=== PATIENT | male | born 1985 | race Caucasian/White ===

== ENCOUNTER 2016-10-18 01:06 | Emergency (ER) | payer OTHER ==
[~2016-10-18] VITALS: Ht 167.6 cm; Wt 113.6 kg
[~2016-10-18 01:06] MED LIST: BP MED; COGENTIN; LITH300C3 PO; VISTARIL; ZYPREXA PO
[2016-10-18] MEDS ORDERED: LURA80 PO (01:15)
[2016-10-18] MEDS ORDERED: VIST50 PO (01:15)
[2016-10-18] MEDS ORDERED: AMLO-511 PO (01:15)
[2016-10-18 01:57] LABS: BASOPHILS % (AUTO) 0.6 % (0.0-2.0); HEMATOCRIT 47.9 % (41-53); HEMOGLOBIN 15.9 g/dL (13.5-17.5); LYMPHOCYTES # (AUTO) 4.6 K/uL (1.0-4.8); LYMPHOCYTES % (AUTO) 42.3 % (22.0-44.0); MEAN CORPUSCULAR HEMOGLOBIN 28.7 pg (26.0-34.0); MEAN CORPUSCULAR HGB CONC 33.1 G/dL (31.0-37.0); MEAN CORPUSCULAR VOLUME 87 fL (80-100); MONOCYTES # (AUTO) 0.5 K/uL (0.1-1.0); MONOCYTES % (AUTO) 4.9 % (2.0-9.0); NEUTROPHILS # (AUTO) 5.5 K/uL (1.8-7.7); NEUTROPHILS % (AUTO) 50.2 % (40.0-70.0); PLATELET COUNT (AUTO) 271 K/uL (150-450); RED BLOOD CELL COUNT(AUTO) 5.53 MIL/uL (4.50-5.90); RED CELL DISTRIBUTION WIDTH 13.1 % (11.5-14.5); WHITE BLOOD COUNT (AUTO) 10.9 K/uL (4.5-11.0)
[2016-10-18 02:02] LABS: ANION GAP 9 mmol/L (8-16); CALCIUM, TOTAL 9.5 mg/dL (8.8-10.5); CARBON DIOXIDE 29 mmol/L (22-29); CHLORIDE 104 mmol/L (98-107); CREATININE 1.11 mg/dL (0.60-1.30); GLOMERULAR FILTR. RATE CALC > 60 mL/min (>60); POTASSIUM 3.7 mmol/L (3.5-5.1); SODIUM SERUM 142 mmol/L (136-145); UREA NITROGEN, BLOOD 12 mg/dL (7-18)
[2016-10-18 02:08] LABS: ALANINE AMINOTRANSFERASE 62 U/L (12-78); ASPARTATE AMINOTRANSFERASE 31 U/L (15-37); BILIRUBIN,TOTAL 0.2 mg/dL (0.1-1.0); TOTAL PROTEIN, SERUM 7.7 g/dL (6.4-8.2)
[2016-10-18 02:20] LABS: LITHIUM < 0.20 mmol/L (0.60-1.20)
[2016-10-18] MEDS ORDERED: HydrOXYzine PAMOATE 50 MG CAPSULE PO ONE (05:30)
[2016-10-18 10:52] VITALS: BP 102/59
== END 2016-10-18 11:30 | disposition short-term general hospital (02) ==
LOC: EMS 01:08
DX: F31.9 Bipolar disorder, unspecified (principal); F41.9 Anxiety disorder, unspecified; I10 Essential (primary) hypertension; F17.210 Nicotine dependence, cigarettes, uncomplicated; Z88.0 Allergy status to penicillin
CPT/HCPCS: 36415; 80053; 80178; 80307; 85025; 99285; G0480

== ENCOUNTER 2017-01-14 03:26 | Emergency (ER) | payer OTHER ==
[~2017-01-14] VITALS: Ht 172.7 cm; Wt 107.0 kg
[~2017-01-14 03:26] MED LIST changes: +AMLO-511 PO; -BP MED; -COGENTIN; -LITH300C3 PO; +LURA80 PO; +VIST50 PO; -VISTARIL; -ZYPREXA PO
[2017-01-14 04:20] LABS: BASOPHILS % (AUTO) 1.2 % (0.0-2.0); EOSINOPHILS % (AUTO) 2.4 % (1.0-6.0); HEMATOCRIT 45.7 % (41-53); HEMOGLOBIN 14.7 g/dL (13.5-17.5); LYMPHOCYTES % (AUTO) 37.2 % (22.0-44.0); MEAN CORPUSCULAR HEMOGLOBIN 28.3 pg (26.0-34.0); MEAN CORPUSCULAR HGB CONC 32.2 G/dL (31.0-37.0); MEAN CORPUSCULAR VOLUME 88 fL (80-100); MONOCYTES # (AUTO) 0.5 K/uL (0.1-1.0); MONOCYTES % (AUTO) 4.2 % (2.0-9.0); PLATELET COUNT (AUTO) 260 K/uL (150-450); RED BLOOD CELL COUNT(AUTO) 5.21 MIL/uL (4.50-5.90); RED CELL DISTRIBUTION WIDTH 13.1 % (11.5-14.5); WHITE BLOOD COUNT (AUTO) 10.9 K/uL (4.5-11.0)
[2017-01-14 04:28] LABS: ANION GAP 8 mmol/L (8-16); CALCIUM, TOTAL 8.8 mg/dL (8.8-10.5); CARBON DIOXIDE 28 mmol/L (22-29); CHLORIDE 105 mmol/L (98-107); CREATININE 1.05 mg/dL (0.60-1.30); GLOMERULAR FILTR. RATE CALC > 60 mL/min (>60); POTASSIUM 3.6 mmol/L (3.5-5.1); SODIUM SERUM 141 mmol/L (136-145); UREA NITROGEN, BLOOD 13 mg/dL (7-18)
[2017-01-14 04:34] LABS: ALANINE AMINOTRANSFERASE 46 U/L (12-78); ALBUMIN 3.7 g/dL (3.4-5.0); ASPARTATE AMINOTRANSFERASE 23 U/L (15-37); BILIRUBIN,TOTAL 0.2 mg/dL (0.1-1.0); TOTAL PROTEIN, SERUM 6.9 g/dL (6.4-8.2)
[2017-01-14 04:54] VITALS: BP 137/88
== END 2017-01-14 05:01 | disposition home or self-care (01) ==
LOC: EMS 03:27
DX: F41.9 Anxiety disorder, unspecified (principal); F43.10 Post-traumatic stress disorder, unspecified; R45.851 Suicidal ideations; F31.9 Bipolar disorder, unspecified; I10 Essential (primary) hypertension; F17.210 Nicotine dependence, cigarettes, uncomplicated; Z88.0 Allergy status to penicillin; X58.XXXA Exposure to other specified factors, initial encounter; Y93.89 Activity, other specified; Y92.89 Other specified places as the place of occurrence of the external cause; Y99.8 Other external cause status
CPT/HCPCS: 36415; 80053; 80307; 85025; 99285; 99406; G0480

== ENCOUNTER 2017-10-18 04:22 | Emergency (ER) | payer OTHER ==
[~2017-10-18] VITALS: Ht 167.6 cm; Wt 100.0 kg
[~2017-10-18 04:22] MED LIST changes: -AMLO-511 PO
[2017-10-18] MEDS ORDERED: LITHIUM PO (04:45)
[2017-10-18 05:56] LABS: BASOPHILS % (AUTO) 0.9 % (0.0-2.0); EOSINOPHILS % (AUTO) 1.7 % (1.0-6.0); HEMATOCRIT 45.5 % (41-53); HEMOGLOBIN 15.8 g/dL (13.5-17.5); LYMPHOCYTES # (AUTO) 4.1 K/uL (1.0-4.8); LYMPHOCYTES % (AUTO) 40.5 % (22.0-44.0); MEAN CORPUSCULAR HEMOGLOBIN 29.5 pg (26.0-34.0); MEAN CORPUSCULAR HGB CONC 34.8 G/dL (31.0-37.0); MEAN CORPUSCULAR VOLUME 85 fL (80-100); MONOCYTES # (AUTO) 0.5 K/uL (0.1-1.0); MONOCYTES % (AUTO) 4.9 % (2.0-9.0); NEUTROPHILS # (AUTO) 5.3 K/uL (1.8-7.7); PLATELET COUNT (AUTO) 251 K/uL (150-450); RED BLOOD CELL COUNT(AUTO) 5.35 MIL/uL (4.50-5.90); RED CELL DISTRIBUTION WIDTH 13.2 % (11.5-14.5)
[2017-10-18 06:03] LABS: ANION GAP 8 mmol/L (8-16); CALCIUM, TOTAL 9.3 mg/dL (8.8-10.5); CARBON DIOXIDE 30 mmol/L (22-29); CHLORIDE 104 mmol/L (98-107); CREATININE 1.02 mg/dL (0.60-1.30); GLOMERULAR FILTR. RATE CALC > 60 mL/min (>60); GLUCOSE,RANDOM 110 mg/dL (70-110); POTASSIUM 3.8 mmol/L (3.5-5.1); SODIUM SERUM 142 mmol/L (136-145); UREA NITROGEN, BLOOD 15 mg/dL (7-18)
[2017-10-18 06:09] LABS: ALANINE AMINOTRANSFERASE 39 U/L (12-78); ALKALINE PHOSPHATASE 95 U/L (46-116); ASPARTATE AMINOTRANSFERASE 24 U/L (15-37); BILIRUBIN,TOTAL 0.5 mg/dL (0.1-1.0); TOTAL PROTEIN, SERUM 7.3 g/dL (6.4-8.2)
[2017-10-18 06:21] LABS: LITHIUM < 0.20 mmol/L (0.60-1.20)
[2017-10-18 12:22] LABS: AMPHET/METH SCREEN,URINE NEGATIVE (NEGATIVE); BARBITURATE SCREEN, URINE NEGATIVE (NEGATIVE); BENZODIAZEPINES SCREEN,URINE NEGATIVE (NEGATIVE); CANNABINOID SCREEN,URINE NEGATIVE (NEGATIVE); COCAINE SCREEN,URINE NEGATIVE (NEGATIVE); METHADONE SCREEN, URINE NEGATIVE (NEGATIVE); OPIATE SCREEN,URINE NEGATIVE (NEGATIVE); PHENCYCLIDINE SCREEN,URINE NEGATIVE (NEGATIVE)
[2017-10-18] MEDS ORDERED: HydrOXYzine PAMOATE 25 MG CAPSULE PO ONE (13:15)
[2017-10-18 15:35] VITALS: BP 133/86
== END 2017-10-18 16:14 | disposition short-term general hospital (02) ==
LOC: EMS 04:22
DX: F31.9 Bipolar disorder, unspecified (principal); F41.9 Anxiety disorder, unspecified; F17.210 Nicotine dependence, cigarettes, uncomplicated; Z88.0 Allergy status to penicillin
CPT/HCPCS: 36415; 80053; 80178; 80307; 85025; 99285; G0480

== ENCOUNTER 2021-12-05 09:22 | Inpatient (IN) | payer MEDICARE, MEDICAID ==
[~2021-12-05] VITALS: Ht 167.6 cm; Wt 116.6 kg
[~2021-12-05 09:22] MED LIST changes: +HYDR50CA7 PO; +LITHIUM PO; -LURA80 PO; -VIST50 PO
[2021-12-05] MEDS ORDERED: OLANZapine 5 MG TABLET PO ONE (09:45)
[2021-12-05] MEDS ORDERED: AMLO-258 PO (09:49)
[2021-12-05] MEDS ORDERED: OLAN10TA74 PO (09:49)
[2021-12-05 10:01] LABS: BASOPHILS % (AUTO) 0.7 % (0.0-2.0); EOSINOPHILS % (AUTO) 2.3 % (1.0-6.0); HEMATOCRIT 41.5 % (41-53); HEMOGLOBIN 14.4 g/dL (13.5-17.5); LYMPHOCYTES # (AUTO) 2.3 K/uL (1.0-4.8); LYMPHOCYTES % (AUTO) 27.4 % (22.0-44.0); MEAN CORPUSCULAR HEMOGLOBIN 28.8 pg (26.0-34.0); MEAN CORPUSCULAR HGB CONC 34.6 G/dL (31.0-37.0); MEAN CORPUSCULAR VOLUME 83 fL (80-100); MONOCYTES # (AUTO) 0.6 K/uL (0.1-1.0); MONOCYTES % (AUTO) 7.1 % (2.0-9.0); NEUTROPHILS # (AUTO) 5.3 K/uL (1.8-7.7); NEUTROPHILS % (AUTO) 62.5 % (40.0-70.0); PLATELET COUNT (AUTO) 253 K/uL (150-450); RED BLOOD CELL COUNT(AUTO) 4.98 MIL/uL (4.50-5.90); RED CELL DISTRIBUTION WIDTH 13.6 % (11.5-14.5)
[2021-12-05 10:10] LABS: ANION GAP 10 mmol/L (8-16); CALCIUM, TOTAL 8.7 mg/dL (8.8-10.5); CARBON DIOXIDE 26 mmol/L (22-29); CHLORIDE 104 mmol/L (98-107); CREATININE 1.07 mg/dL (0.60-1.30); GLOMERULAR FILTR. RATE CALC > 60 mL/min (>60); GLUCOSE,RANDOM 134 mg/dL (70-110); POTASSIUM 3.4 mmol/L (3.5-5.1); SODIUM SERUM 140 mmol/L (136-145); UREA NITROGEN, BLOOD 16 mg/dL (7-18)
[2021-12-05 10:16] LABS: ALANINE AMINOTRANSFERASE 48 U/L (12-78); ALBUMIN 3.4 g/dL (3.4-5.0); ALKALINE PHOSPHATASE 97 U/L (46-116); ASPARTATE AMINOTRANSFERASE 31 U/L (15-37); BILIRUBIN,TOTAL 0.3 mg/dL (0.1-1.0); TOTAL PROTEIN, SERUM 6.9 g/dL (6.4-8.2)
[2021-12-05 10:55] LABS: COVID AG,FIA SOURCE NASOPHARYNGEAL
[2021-12-05] MEDS ORDERED: HALOPERIDOL 5 MG TABLET PO PRN (11:30)
[2021-12-05] MEDS ORDERED: ZOLPIDEM TARTRATE 10 MG TABLET PO PRN (11:30)
[2021-12-05] MEDS ORDERED: LORazepam 2 MG TABLET PO PRN (11:30)
[2021-12-05 14:28] VITALS: BP 118/65
[2021-12-05 16:11] VITALS: BP 117/75
[2021-12-06 00:53] VITALS: BP 111/73
[2021-12-06] MEDS ORDERED: POTASSIUM CHLORIDE 20 MEQ ER TABLET PO ONE (06:00)
[2021-12-06] MEDS ORDERED: LOPERAMIDE HCL 2 MG CAPSULE PO PRN (06:15)
[2021-12-06] MEDS ORDERED: ACETAMINOPHEN 325 MG TABLET PO PRN (06:15)
[2021-12-06] MEDS ORDERED: MAG HYDROX/AL HYDROX/SIMETH ES 30 ML SUSPENSION UDCUP PO PRN (06:15)
[2021-12-06] MEDS ORDERED: PETROLATUM,WHITE 28 GM JELLY TP PRN (06:15)
[2021-12-06] MEDS ORDERED: GuaiFENesin/D-METHORPHAN [SUGAR-FREE] 200-20MG/10 ML SYRUP UDCUP PO PRN (06:15)
[2021-12-06] MEDS ORDERED: IBUPROFEN 400 MG TABLET PO PRN (06:15)
[2021-12-06] MEDS ORDERED: ONDANSETRON HCL 4 MG TABLET PO PRN (06:15)
[2021-12-06] MEDS ORDERED: MAGNESIUM HYDROXIDE SUSPENSION 30 ML UDCUP PO PRN (06:15)
[2021-12-06] MEDS ORDERED: ALBUTEROL SULFATE HFA 90 MCG/PUFF 8 GM INHALER IH PRN (06:15)
[2021-12-06] MEDS ORDERED: DOCUSATE SODIUM 100 MG CAPSULE PO PRN (06:15)
[2021-12-06] MEDS ORDERED: CloNIDine HCL 0.1 MG TABLET PO PRN (06:15)
[2021-12-06 07:46] LABS: FREE T4 (FREE THYROXINE) 0.84 ng/dL (0.76-1.46); THYROID STIMULATING HORMONE 1.05 uIU/mL (0.36-3.74)
[2021-12-06] MEDS: AmLODIPine BESYLATE 10 MG TABLET PO SCH (08:23)
[2021-12-06 08:36] VITALS: BP 141/86
[2021-12-06] MEDS: NICOTINE 14 MG/24 HOUR PATCH TD PRN (11:53)
[2021-12-06 16:12] VITALS: BP 150/85
[2021-12-06] MEDS: HydrOXYzine PAMOATE 50 MG CAPSULE PO SCH (20:06)
[2021-12-06] MEDS: OLANZapine 10 MG TABLET PO SCH (20:06)
[2021-12-06] MEDS: LITHIUM CARBONATE 300 MG CAPSULE PO SCH (20:06)
[2021-12-07 01:18] VITALS: BP 132/81
[2021-12-07 08:19] VITALS: BP 131/77
[2021-12-07] MEDS: AmLODIPine BESYLATE 10 MG TABLET PO SCH (08:33)
[2021-12-07] MEDS: NICOTINE 14 MG/24 HOUR PATCH TD PRN (15:09)
[2021-12-07 16:15] VITALS: BP 149/85
[2021-12-07] MEDS: LITHIUM CARBONATE 300 MG CAPSULE PO SCH (20:57)
[2021-12-07] MEDS: OLANZapine 10 MG TABLET PO SCH (20:57)
[2021-12-07] MEDS: HydrOXYzine PAMOATE 50 MG CAPSULE PO SCH (20:57)
[2021-12-08 06:06] VITALS: BP 110/69
[2021-12-08 07:28] LABS: CHOL/HDL RATIO 5.2 (4.2-7.3); POTASSIUM 4.1 mmol/L (3.5-5.1)
[2021-12-08 08:04] VITALS: BP 132/69
[2021-12-08] MEDS: AmLODIPine BESYLATE 10 MG TABLET PO SCH (09:40)
[2021-12-08 16:06] VITALS: BP 130/64
[2021-12-08] MEDS: NICOTINE 14 MG/24 HOUR PATCH TD PRN (16:28)
[2021-12-08] MEDS: LITHIUM CARBONATE 300 MG CAPSULE PO SCH (20:18)
[2021-12-08] MEDS: OLANZapine 10 MG TABLET PO SCH (20:18)
[2021-12-08] MEDS: HydrOXYzine PAMOATE 50 MG CAPSULE PO SCH (20:18)
[2021-12-09 01:00] VITALS: BP 125/67
[2021-12-09 08:16] VITALS: BP 136/68
[2021-12-09] MEDS: AmLODIPine BESYLATE 10 MG TABLET PO SCH (09:12)
[2021-12-09] MEDS ORDERED: LITH600C5 PO (13:00)
[2021-12-09] MEDS: NICOTINE 14 MG/24 HOUR PATCH TD PRN (13:34)
[2021-12-09 16:08] VITALS: BP 129/66
[2021-12-09] MEDS: OLANZapine 10 MG TABLET PO SCH (21:14)
[2021-12-09] MEDS: HydrOXYzine PAMOATE 50 MG CAPSULE PO SCH (21:14)
[2021-12-09] MEDS: LITHIUM CARBONATE 300 MG CAPSULE PO SCH (21:14)
[2021-12-10 06:09] VITALS: BP 101/65
[2021-12-10 08:08] VITALS: BP 127/63
[2021-12-10] MEDS: AmLODIPine BESYLATE 10 MG TABLET PO SCH (08:42)
[2021-12-10] MEDS ORDERED: LITH300C3 PO (11:16)
[2021-12-10] MEDS ORDERED: AMLO-258 PO (12:15)
== END 2021-12-10 12:23 | disposition left against medical advice (07) | DRG 885 ==
LOC: EMS 09:29 → B2S 11:33 → UNDOADMIN 11:33 → B2S 12-07 19:07
PROVIDERS: ADMIT Psychiatry & Neurology Psychiatry; ATTEND Psychiatry & Neurology Psychiatry
DX: F25.0 Schizoaffective disorder, bipolar type (principal); R45.851 Suicidal ideations; Z68.41 Body mass index [BMI] 40.0-44.9, adult; E66.9 Obesity, unspecified; E87.6 Hypokalemia; F43.10 Post-traumatic stress disorder, unspecified; I10 Essential (primary) hypertension; R45.850 Homicidal ideations; F41.9 Anxiety disorder, unspecified; F17.210 Nicotine dependence, cigarettes, uncomplicated; Z20.822 Contact with and (suspected) exposure to COVID-19; Z53.29 Procedure and treatment not carried out because of patient's decision for other reasons; Z88.0 Allergy status to penicillin; Z91.14 Patient's other noncompliance with medication regimen
CPT/HCPCS: 80053; 80061; 84132; 84439; 84443; 85025; 87081; 99285; G0480